=== PATIENT | male | born 1965 | race Caucasian/White ===

== ENCOUNTER 2019-11-14 17:46 | Emergency (ER) | payer SELFPAY ==
[~2019-11-14] VITALS: Ht 172.7 cm; Wt 81.8 kg
[2019-11-14 17:50] VITALS: TEMP 97.2
[2019-11-14] MEDS ORDERED: NORCO 325 MG-51 TAB PO ×2 (19:09→20:19)
[2019-11-14] MEDS ORDERED: CRUTCHES MC (19:10)
[2019-11-14 21:00] VITALS: BP 131/85; PULSE 84
== END 2019-11-14 21:00 | disposition home or self-care (01) ==
LOC: COL.ER 17:46
DX: S82.852A Displaced trimalleolar fracture of left lower leg, initial encounter for closed fracture (principal); Y99.0 Civilian activity done for income or pay; Y92.59 Other trade areas as the place of occurrence of the external cause; W22.8XXA Striking against or struck by other objects, initial encounter; W19.XXXA Unspecified fall, initial encounter
CPT/HCPCS: J2405; J2704; J3010; J7030; Q4045

== ENCOUNTER → 2019-12-05 | Outpatient (CLI) | payer OTHER ==
[~2019-12-05] MED LIST: CRUTCHES MC; NORCO 325 MG-51 TAB PO
== END ==
LOC: COL.VAS 10:14
DX: I82.452 Acute embolism and thrombosis of left peroneal vein (principal)

== ENCOUNTER → 2020-02-25 | Outpatient (CLI) | payer OTHER | LOC: COL.VAS 13:29 | DX: I82.452 Acute embolism and thrombosis of left peroneal vein (principal) ==